=== PATIENT | male | born 1930 | race Two or more races ===

== ENCOUNTER 2020-05-28 14:19 | Outpatient (CLI) | payer MEDICARE, MEDICAID ==
--- NOTE | 2020-05-28 16:00 | Consultation ---
DATE OF CONSULTATION: 05/28/2020 CHIEF COMPLAINT: Black tarry stools. HISTORY OF PRESENT ILLNESS: This is an 89-year-old male without any significant past medical history except for hypertension was referred to us by Dr. Gallego for evaluation of black tarry stools. PAST MEDICAL HISTORY: Hypertension. PAST SURGICAL HISTORY: None. MEDICATIONS: Please see medication reconciliation list. FAMILY HISTORY: Noncontributory. SOCIAL HISTORY: The patient denies any tobacco, alcohol, drug abuse. ALLERGIES: No known drug allergies. REVIEW OF SYSTEMS: Positive for black tarry stools, otherwise negative. PHYSICAL EXAMINATION: VITAL SIGNS: Temperature 98.1, blood pressure is 125/71, pulse is 65, respirations 20. Height is 5 feet 5 inches, weight is 157. HEENT: Normocephalic and atraumatic. Sclerae anicteric. NECK: Supple. No evidence of obvious lymphadenopathy. CARDIOVASCULAR: Regular rate and rhythm. Plus S1 and S2. LUNGS: Clear to auscultation bilaterally. ABDOMEN: Positive bowel sounds. Soft and nontender. No rebound. No guarding. No peritoneal sign. EXTREMITIES: No cyanosis. No clubbing. No edema. ASSESSMENT AND PLAN: This is an 89-year-old male with black tarry stools, referred for endoscopy and colonoscopy by Dr. Jose Gallego. Plan to schedule the patient for this coming Tuesday. The procedure was explained to the patient and his son. Risks and benefits was explained to him. Prep was explained to him. They both agreed so we will plan for this Tuesday. I want to thank Dr. Jose Gallego for this kind referral. Chirag Duran M.D. DR: Zahida JOB#: [id number] CC: Jose Gallego M.D.; Fax#: [phone]
== END 2020-05-28 16:19 | disposition home or self-care (01) ==
LOC: PAN 14:19
DX: K92.1 Melena (principal); I10 Essential (primary) hypertension
CPT/HCPCS: G0463